=== PATIENT | female | born 1945 | race Caucasian/White ===

== ENCOUNTER → 2020-09-08 | Outpatient (CLI) | payer MEDICARE ==
[~2020-09-08] MED LIST: CALCIUM500 M1 PO; CYANOCOBAL1000 MCG/1 INJ; DITROPAN 5 MG TA5 MG PO; ENOXAPARIN40 MG/0.4 SC; HYDROCHLOROTHIA25 MG PO; LISINOPRIL10 MG PO; LORTAB 5-325 M1 EACH PO; OMEPRAZOLE20 MG PO; VITAMIN B-122000 MC1 PO; VITAMIN D 40400 UNIT PO; XARELTO 10 MG T10 MG PO; ZOLOFT25 MG PO
== END ==
LOC: KOH-I 14:28
DX: M54.9 Dorsalgia, unspecified (principal); M51.36 Other intervertebral disc degeneration, lumbar region; M51.34 Other intervertebral disc degeneration, thoracic region
CPT/HCPCS: 72070; 72100

== ENCOUNTER → 2021-04-09 | Outpatient (CLI) | payer MEDICARE ==
[~2021-04-09] VITALS: Ht 160 cm; Wt 60.3 kg
== END ==
LOC: OPSV 12:42
DX: M81.0 Age-related osteoporosis without current pathological fracture (principal)
CPT/HCPCS: 96372

== ENCOUNTER → 2021-10-19 | Outpatient (CLI) | payer MEDICARE ==
[~2021-10-19] VITALS: Ht 160 cm; Wt 61.2 kg
== END ==
LOC: OPSV 14:57
DX: M81.0 Age-related osteoporosis without current pathological fracture (principal)
CPT/HCPCS: 96372